=== PATIENT | male | born 1940 | race Caucasian/White ===

== ENCOUNTER 2019-04-29 13:19 | Outpatient (CLI) | payer MEDICARE ==
[~2019-04-29 13:19] MED LIST: ASPI81TA52 PO; BUPR300T54 PO; KETO50CA PO; METF500T PO; TRAZ50CO PO
[2019-04-29] MEDS ORDERED: BARIUM SULFATE 340 ML SUSP.RECON***PROCEDURE AREA ONLY**DONT ENTER PO ONE (14:00)
== END 2019-04-29 23:59 | disposition home or self-care (01) ==
LOC: RAD 13:19
PROVIDERS: ATTEND Otolaryngology
DX: R13.12 Dysphagia, oropharyngeal phase (principal); R49.0 Dysphonia; R47.1 Dysarthria and anarthria; G20 Parkinson's disease
CPT/HCPCS: 74220; 74230